=== PATIENT | female | born 1985 | race Caucasian/White ===

== ENCOUNTER 2021-09-05 14:30 | Emergency (ER) | payer SELFPAY ==
[2021-09-05] MEDS ORDERED: Ibuprofen 200 MG TAB ONE (14:55)
== END 2021-09-05 15:05 | disposition home or self-care (01) ==
LOC: ERS 14:30
DX: H66.42 Suppurative otitis media, unspecified, left ear (principal); J45.909 Unspecified asthma, uncomplicated; F17.210 Nicotine dependence, cigarettes, uncomplicated
CPT/HCPCS: 99282